=== PATIENT | female | born 2000 | race Caucasian/White ===

== ENCOUNTER 2024-11-11 17:24 | Emergency (ER) | payer OTHER ==
[2024-11-11 17:46] VITALS: TEMP 98.6; BMI 50.8
[2024-11-11] MEDS: SODIUM CHLORIDE 1,000 ML IV STA (18:35)
[2024-11-11 19:08] LABS: HEMATOCRIT 36.6 % (34.1-44.9); HEMOGLOBIN 10.4 g/dL (11.2-15.7); MCHC 28.4 g/dl (32.2-35.5); MEAN CELL VOLUME 69.4 fl (79.4-94.8); MEAN PLT VOLUME 9.7 fl (9.4-12.3); PLATELET COUNT 442 x10^3/uL (182-369)
[2024-11-11 19:16] LABS: HCG,QUALITATIVE URINE Negative
[2024-11-11 19:17] LABS: PH,URINE 6.5 (5.0-8.0); URINE APPEARANCE CLEAR; URINE BILIRUBIN NEGATIVE (NEGATIVE); URINE COLOR YELLOW; URINE GLUCOSE (UA) NEGATIVE (NEGATIVE); URINE KETONE NEGATIVE (NEGATIVE); URINE LEUK ESTERASE NEGATIVE (NEGATIVE); URINE NITRITE NEGATIVE (NEGATIVE); URINE PROTEIN NEGATIVE (NEGATIVE); URINE UROBILINOGEN 0.2 mg/dL (0.2-1.0)
[2024-11-11 19:36] LABS: POTASSIUM 4.6 mmol/L (3.5-5.1)
[2024-11-11 19:38] LABS: CALCIUM 9.7 mg/dL (8.5-10.1)
[2024-11-11 19:39] LABS: ALBUMIN 3.9 g/dl (3.4-5.0); BLOOD UREA NITROGEN 9.5 mg/dL (7-18); MAGNESIUM 2.1 mg/dL (1.8-2.4)
[2024-11-11 19:42] LABS: CREATININE 0.7 mg/dL (0.55-1.3)
[2024-11-11 19:44] LABS: BILIRUBIN,TOTAL 0.3 mg/dL (0.2-1); TOT PROT 8.2 g/dl (6.4-8.2)
[2024-11-11 21:11] VITALS: BP 129/87; PULSE 93; RESP 18
== END 2024-11-11 21:23 | disposition home or self-care (01) ==
LOC: JER 17:24
PROC: 3E0337Z Introduction of Electrolytic and Water Balance Substance into Peripheral Vein, Percutaneous Approach (ICD-10-PCS; principal; 2024-11-11)
DX: R53.83 Other fatigue (principal); R00.2 Palpitations; D64.9 Anemia, unspecified; R42 Dizziness and giddiness; R11.0 Nausea; R06.02 Shortness of breath; R51.9 Headache, unspecified
CPT/HCPCS: 36415; 71046-TC-FY; 80053; 81003; 83735; 84443; 84484; 84703; 85027; 85379; 86850; 86900; 86901; 87086; 93005; 93010; 96361; 99284-25